=== PATIENT | male | born 1990 | race Asian ===

== ENCOUNTER 2018-08-19 16:38 | Outpatient (CLI) | payer BC, SELFPAY ==
[2018-08-19 17:01] LABS: Abs Immature Grans 0.01 k/cumm (0.0-0.09); Absolute Basophil Count 0.02 k/cumm (0.0-0.2); Absolute Eosinophil Count 0.18 k/cumm (0.0-0.7); Absolute Lymphocyte Count 2.91 k/cumm (1.2-3.4); Absolute Neutrophil Count 5.03 k/cumm (1.2-6.7); Basophils % 0.2; Eosinophils % 2.1; HCT 42.6 % (40.0-50.0); HGB 14.4 g/dL (13.5-17.5); Immature Grans % 0.1; Lymphocytes % 33.3; Mean Corp. HGB Concentration 33.8 g/dL (32.0-36.0); Mean Corpuscular Hemoglobin 29.4 pg (27.0-33.0); Mean Corpuscular Volume 86.9 fL (80-95); Mean Platelet Volume 11.1 fL (8.0-11.0); Monocytes % 6.9; Neutrophils % 57.4; Platelet Count 175 x1000/uL (130-400); RBC Distribution Width 12.8 % (11.8-14.1); White Blood Cell Count 8.75 k/cumm (4.4-10.8)
[2018-08-19 18:34] LABS: AST 28 U/L (15-37); Albumin 4.4 g/dL (3.4-5.0); Anion Gap 8.2 mmol/L (3-11); BUN 15 mg/dL (7-18); Bilirubin, Total 0.5 mg/dL (0.2-1.0); CO2 28.8 mmol/L (21.0-32.0); CREATININE 0.96 mg/dL (0.70-1.30); Calcium 9.4 mg/dL (8.5-10.1); Chloride 104 mmol/L (98-107); Glucose 91 mg/dL (70-100); Potassium 4.1 mmol/L (3.5-5.1); Sodium 141 mmol/L (136-145); Total Protein 7.5 g/dL (6.4-8.2)
[2018-08-19 19:14] LABS: ALT 33 U/L (12-78); Alkaline Phosphatase 96 U/L (46-116); C-Reactive Protein 0.11 mg/dL (0.0-0.3)
[2018-08-19 20:39] LABS: ESR 4 MM/HR (0-15)
== END 2018-08-19 16:58 ==
PROVIDERS: PCP Nurse Practitioner Family; Visit Provider Nurse Practitioner Family
DX: R10.31 Right lower quadrant pain (principal); R10.32 Left lower quadrant pain; R19.4 Change in bowel habit
CPT/HCPCS: 36415; 80053; 85652; 85025; 86140